=== PATIENT | female | born 1960 | race Caucasian/White ===

== ENCOUNTER 2017-04-06 07:22 | Day surgery (SDC) | payer OTHER ==
[~2017-04-06 07:22] MED LIST: Lactated Ringers 1,000 ML IV SCH; Lidocaine 1% 4 ML ONE; Lidocaine 1%/Sod Bicarbonate in NS 8.4% 1 ML Syringe IV PRN; Propofol 200 MG/20 ML SDV ONE; Sodium Chloride 0.9% 10 ML Syringe FLUSH PRN; fentaNYL 100 MCG/2 ML SDV ONE
--- NOTE | 2017-04-06 08:34 | PCM.PREANE ---
Preanesthetic Assessment - Anesthesia/Transfusion/Family Hx Anesthesia History: Prior Anesthesia Without Reaction Type of Anesthesia Reaction: Excessive Nausea/Vomiting (with back fusion ) Family History of Anesthesia Reaction: No Transfusion History: No Prior Transfusion(s) Intubation History: Unknown - Review of Systems General: No Symptoms Pulmonary: Other (Sleep apnea ) Cardiovascular: Other (HTN) Gastrointestinal: Abdominal pain, Diarrhea, Other (GERD) Neurological: No Symptoms Other: Reports: None, Thyroid Problems (hypothyroidism ), Depression, Anxiety - Physical Assessment NPO Status Date: 04/05/17 NPO Status Time: 21:00 O2 Sat by Pulse Oximetry: 97 Respiratory Rate: 16 Vital Signs: Last Vital Signs Temp 36.3 C 04/06/17 07:30 Pulse 73 04/06/17 07:30 Resp 16 04/06/17 07:30 BP 130/85 04/06/17 07:30 Pulse Ox 97 04/06/17 07:30 Height: 1.52 m Weight: 96.162 kg ASA Class: 3 Mental Status: Alert & Oriented x3 Airway Class: Mallampati = 3 Dentition: Reports: Normal Dentition Thyro-Mental Finger Breadths: 3 Mouth Opening Finger Breadths: 3 ROM/Head Extension: Full Lungs: Clear to auscultation, Normal respiratory effort Cardiovascular: Regular Rate, Regular Rhythm - Allergies Allergies/Adverse Reactions: Allergies Allergy/AdvReac Type Severity Reaction Status Date / Time latex Allergy Unknown Rash Verified 04/06/17 08:22 Sulfa (Sulfonamide Allergy Unknown Rash Verified 04/06/17 08:22 Antibiotics) tetracycline [Tetracycline] Allergy Unknown Rash Verified 04/06/17 08:22 - Blood Blood Available: No Product(s) Available: None - Anesthesia Plan Beta Alex: Atenolol Med Last Dose Date: 04/05/17 Med Last Dose Time: 05:00 - Acknowledgements Anesthesia Type Planned: MAC Pt an Appropriate Candidate for the Planned Anesthesia: Yes Alternatives and Risks of Anesthesia Discussed w Pt/Guardian: Yes Pt/Guardian Understands and Agrees with Anesthesia Plan: Yes PreAnesthesia Questionnaire HEENT History: Reports: Impaired vision, Other (see below) Other HEENT History: wears glasses Cardiovascular History: Reports: Hypertension Respiratory History: Reports: Sleep apnea Gastrointestinal History: Reports: Chronic diarrhea, GERD, Other (see below) Other Gastrointestinal History: abdominal pain, c-diff in 2014 Genitourinary History: Reports: None 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 (see below) Other OB/BYN History: nipple discharge, decreased libido, breast lumpectomy Musculoskeletal History: Reports: Other (see below) Other Musculoskeletal History: R hip pain, lumbar disc disease, R foot bone spur Neurological History: Reports: Other (see below) Other Neuro History: had seizure when prior to due to toxemia/ elevated b/p Psychiatric History: Reports: Anxiety, Panic attack, Other (see below) Other Psychiatric History: insomnia Endocrine/Metabolic History: Reports: None Hematologic History: Reports: Iron deficiency Other Hematologic History: hypokalemia Immunologic History: Reports: None Oncologic (Cancer) History: Reports: None Dermatologic History: Reports: Eczema - Past Surgical History HEENT Surgical History: Reports: Adenoidectomy, Naso-sinus surgery, Tonsillectomy, Other (see below) Other HEENT Surgeries/Procedures: tympanoplasty GI Surgical History: Reports: Colonoscopy Female Surgical History: Reports: Breast biopsy Musculoskeletal Surgical History: Reports: Hip replacement, Other (see below) Other Musculoskeletal Surgeries/Procedures:: rods/screws to lower back, Left total hip replacement - SUBSTANCE USE Smoking Status *Q: Never Smoker Second Hand Smoke Exposure: No Days Per Week of Alcohol Use: 7 Number of Drinks Per Day: 1 Total Drinks Per Week: 7 Recreational Drug Use History: No - HOME MEDS Home Medications: Home Meds Omeprazole [Prilosec] 20 mg PO DAILY 01/29/15 [History] Atenolol 100 mg PO DAILY #1 02/04/15 [Rx] Chlorthalidone 25 mg PO DAILY #1 02/04/15 [Rx] Colestipol HCl 2 g PO BID PRN 04/05/17 [History] Escitalopram [Lexapro] 20 mg PO DAILY 04/05/17 [History] LORazepam [Ativan] 0.25 - 0.5 mg PO Q8H PRN 04/05/17 [History] Levothyroxine [Synthroid] 50 mcg PO DAILY 04/05/17 [History] - CURRENT (IN HOUSE) MEDS Current Meds: Current Medications Lactated Ringer's (Ringers, Lactated) 1,000 mls @ 125 mls/hr IV ASDIRECTED REJI Stop: 04/06/17 23:00 Last Admin: 04/06/17 07:50 Dose: 125 mls/hr Lidocaine/Sodium Bicarbonate (Buffered Lidocaine 1% In Ns 8.4%) 0.25 ml IV ONETIME PRN PRN Reason: Prior to IV Start Stop: 04/06/17 18:00 Sodium Chloride (Saline Flush) 10 ml FLUSH ASDIRECTED PRN PRN Reason: Keep Vein Open Stop: 04/06/17 18:00 Discontinued Medications Fentanyl (Sublimaze) Confirm Administered Dose 100 mcg .ROUTE .STK-MED ONE Stop: 04/06/17 07:03 Lidocaine HCl (Xylocaine-Mpf 1%) Confirm Administered Dose 4 mls @ as directed .ROUTE .STK-MED ONE Stop: 04/06/17 07:03 Propofol (Diprivan 20 Ml) Confirm Administered Dose 200 mg .ROUTE .STK-MED ONE Stop: 04/06/17 07:02
[2017-04-06] MEDS ORDERED: Propofol 200 MG/20 ML SDV ONE (09:29)
--- NOTE | 2017-04-06 09:43 | PCM.OPNOTE ---
- General Post-Op/Procedure Note Date of Surgery/Procedure: 04/06/17 Operative Procedure(s): Esophagogastroduodenoscopy with cold forceps biopsy. Colonoscopy with cold forceps biopsy Findings: Gastritis, Hiatal Hernia, Fundic Gland Polyps Internal hemorrhoids Pre Op Diagnosis: Epigastric Pain, Change in bowel habits Post-Op Diagnosis: Gastritis, Hiatal Hernia, Fundic Gland Polyps, Internal Hemorrhoids Anesthesia Technique: MAC Primary Surgeon: Stephen Andrea EBL in mLs: 5 Complications: None Condition: Good Free Text/Narrative:: After patient gave verbal and written consent, she was placed on blood pressure and pulse ox monitoring. She was given iv sedation which she tolerated well. The upper endoscope was inserted in the oropharynx and passed to the 2nd portion of the duodenum. Views were excellent. 4 cold forceps biopsies of duodenum in the 1st and 2nd portion were performed. The stomach was visualized. Multiple fundic gland polyps noted, 1 polyp was biopsied. The scope was retroflexed. Hiatal hernia was noted. The scope was then straightened and brought to the GE junction, this was normal. 2 cold forceps biopsies taken. Scope was removed. Patient was prepped for colonoscopy. The colonoscope was inserted per rectum and advanced to the cecum without difficulty. The ileocecal valve and appendiceal orfice were imaged documenting cecal intubation. The scope was slowly withdrawn. The views were excellent. Multiple cold forceps biopsies were taken throughout. The scope was brought into the rectum. Internal hemorrhoids noted. The scope was removed.
--- NOTE | 2017-04-06 09:43 | PCM48HPAN ---
Post Anesthesia Note - EVALUATION WITHIN 48HRS OF ANESTHETIC Vital Signs in Normal Range: Yes Patient Participated in Evaluation: Yes Respiratory Function Stable: Yes Airway Patent: Yes Cardiovascular Function Stable: Yes Hydration Status Stable: Yes Pain Control Satisfactory: Yes Nausea and Vomiting Control Satisfactory: Yes Mental Status Recovered: Yes
[2017-04-06 10:14] VITALS: BP 138/73
== END 2017-04-06 10:16 | disposition home or self-care (01) ==
LOC: JD.SDS 07:22
PROVIDERS: ATTEND Family Medicine
DX: K44.9 Diaphragmatic hernia without obstruction or gangrene (principal); K31.7 Polyp of stomach and duodenum; K64.8 Other hemorrhoids
CPT/HCPCS: 43239; 45380; 88305; J3010; J7120; J2704